=== PATIENT | female | born 1935 | race Caucasian/White ===

== ENCOUNTER → 2016-06-22 12:22 | Outpatient (CLI) | payer MEDICARE, BC ==
[2015-10-16 15:10] VITALS: BMI 30.4
[~2016-06-22 12:22] MED LIST: ALENDRONATE SOD70 MG PO; ANTIVERT12.5 MG PO; ASPIRIN EC81 M1 PO; BUMEX 1 MG TAB1 MG PO; CELEXA20 MG PO; CO Q-10200 MG PO; CYCLOBENZAPRINE10 MG PO; FISH OIL 1,0001 CA1 PO; IBUPROFEN600 MG PO; ICAPS AREDS1 TAB.SA PO; K-DUR20 MEQ PO; LOVASTATIN20 MG PO; MINOCIN100 MG PO; MOBIC7.5 MG PO; NORVASC5 MG PO; PLAVIX75 MG PO; PRILOSEC20 MG PO; VITAMIN B-121000 MCG PO; VITAMIN D31000 UNI2 PO
== END | disposition home or self-care (01) ==
LOC: D.US 12:22
DX: I65.21 Occlusion and stenosis of right carotid artery (principal)

== ENCOUNTER → 2017-01-09 08:34 | Outpatient (CLI) | payer MEDICARE, BC ==
[2015-10-16 15:10] VITALS: BMI 30.4
== END | disposition home or self-care (01) ==
LOC: D.CT 08:34
DX: I65.21 Occlusion and stenosis of right carotid artery (principal)

== ENCOUNTER → 2017-01-26 10:30 | Outpatient (CLI) | payer MEDICARE, BC ==
[2015-10-16 15:10] VITALS: BMI 30.4
== END | disposition home or self-care (01) ==
LOC: D.CT 10:30
DX: R91.1 Solitary pulmonary nodule (principal)

== ENCOUNTER → 2017-06-26 12:40 | Outpatient (CLI) | payer MEDICARE, BC ==
[2015-10-16 15:10] VITALS: BMI 30.4
== END | disposition home or self-care (01) ==
LOC: D.CT 12:40
DX: I65.23 Occlusion and stenosis of bilateral carotid arteries (principal)

== ENCOUNTER → 2018-01-26 11:05 | Outpatient (CLI) | payer MEDICARE, BC ==
[2015-10-16 15:10] VITALS: BMI 30.4
== END | disposition home or self-care (01) ==
LOC: D.US 11:05
DX: I65.23 Occlusion and stenosis of bilateral carotid arteries (principal); I72.9 Aneurysm of unspecified site

== ENCOUNTER → 2018-06-20 09:24 | Outpatient (CLI) | payer MEDICARE, BC ==
[2015-10-16 15:10] VITALS: BMI 30.4
--- NOTE | ~2018-06-20 | ST ---
PATIENT:JASSI COLLINS MEDICAL RECORD: [id number] SEX: F LOCATION:[facility] ORDER #: ADMISSION DATE: 06/20/18 AGE OF PATIENT: 82 REFERRING PHYSICIAN: INTERPRETING PHYSICIAN: JV WATSON MD DATE OF SERVICE: 06/20/2018 PROCEDURE: Nuclear stress test. INDICATION: Angina, shortness of breath, and hypertension. She was exercised on standard Lexiscan protocol with 32 mCi of sestamibi injected at peak stress. Rest images were done previously with 11 mCi. FINDINGS: Gated SPECT reveals preserved ejection fraction at 76% with good wall motion and thickening and brightening throughout all segments. SPECT imaging Cardiolite was used as myocardial fusion agent. There is homogeneous uptake throughout all segments at rest and stress with no evidence of inducible ischemia or previous infarction. OVERALL IMPRESSION: 1. This is a normal nuclear stress test with no evidence of inducible ischemia or previous infarction. 2. Gated SPECT reveals a preserved ejection fraction at 76%. In this patient with ongoing symptomatology, the current scan does not suggest the presence of hemodynamically significant coronary artery disease. Evaluate noncardiac etiology of chest pain. TRANSINT:[id number] Voice Confirmation ID: [id number] DOCUMENT ID: [id number] JV WATSON MD CC: [id number] DICTATION DATE: 06/20/18 1620 CREDIT REPORTER: 06/21/18 0442 DEP CLI 06/20/18 [facility] [address] [place] [address]
== END | disposition home or self-care (01) ==
LOC: D.HCCARDIO 09:24
PROVIDERS: ATTEND Internal Medicine Cardiovascular Disease
DX: I20.9 Angina pectoris, unspecified (principal)

== ENCOUNTER → 2018-08-28 08:40 | Outpatient (CLI) | payer MEDICARE, BC ==
[2015-10-16 15:10] VITALS: BMI 30.4
== END | disposition home or self-care (01) ==
LOC: D.US 08:40
PROVIDERS: ATTEND Internal Medicine Cardiovascular Disease
DX: I65.23 Occlusion and stenosis of bilateral carotid arteries (principal)

== ENCOUNTER → 2019-05-30 12:07 | Outpatient (CLI) | payer MEDICARE, BC ==
[~2019-05-30] VITALS: Ht 162.6 cm; Wt 72.7 kg
[~2019-05-30 12:07] MED LIST changes: +Bumex PO; +CARAFATE1 G PO; +LOPRESSOR25 MG PO; +PROTONIX40 MG PO; +VENTOLIN HFA [SP8 GM INH; +ZITHROMAX500 MG PO; +ZYLOPRIM100 MG PO
[2019-05-30 12:45] VITALS: BP 172/64; Ht 162.6 cm; Wt 72.7 kg
[2019-05-30 13:00] LABS: ANION GAP 14.2 mmol/L (8-16); CALCIUM 9.4 mg/dL (8.5-10.1); CARBON DIOXIDE 24.7 mmol/L (21.0-32.0); CREATININE - SERUM 1.6 mg/dL (0.6-1.3); POTASSIUM - SERUM 3.9 mmol/L (3.5-5.1)
[2019-05-30 13:17] LABS: BASOPHILS 0.4 % (0-2); EOSINOPHILS 4.1 % (0-7); HEMATOCRIT 22.3 % (36.0-48.0); IMMATURE GRANULOCYTES 0.2 % (0-5); LYMPHOCYTES 30.2 % (15-50); MCHC 29.6 g/dL (31.0-37.0); MCV 91.4 fL (80.0-100.0); MONOCYTES 8.2 % (2-11); NEUTROPHILS 56.9 % (40-80); PLATELET COUNT 232 10x3/uL (130-400); RBC 2.44 10x6/uL (4.00-5.40); RDW 16.1 % (11.5-14.5); WBC 5.4 10x3/uL (4.8-10.8)
[2019-05-30 13:18] LABS: HEMOGLOBIN 6.6 g/dL (12-16)
--- NOTE | 2019-05-30 13:45 | NUR ---
DR. ESTEVES CALLED AND SPOKE WITH PT'S SON ABOUT CANCELLING PROCEDURE AND ADMITTING PT FOR WORK UP OF ANEMIA AT THIS TIME.
--- NOTE | 2019-05-30 14:00 | NUR ---
CALLED AND SPOKE WITH PT'S SON AND UPDATED HIM ON PT'S STATUS, ROOM NUMBER, PLAN OF CARE, AND PHONE NUMBERS TO NURSES STATION AND TO PT'S NEW ROOM NUMBER.
--- NOTE | 2019-05-30 14:35 | NUR ---
PT TAKEN DOWN TO ROOM BY WHEELCHAIR. NO S/S OF DISTRESS NOTED. ALL BELONGINGS AND PAPERWORK IN HAND. AMBULATED TO BED FROM WHEELCHAIR. O2 AT 2LNC PLACED ON PT. CALL LIGHT WITHIN REACH AND PHONE AT BEDSIDE. HANDOFF REPORT GIVEN TO INES AZEVEDO AT BEDSIDE.
== END | disposition home or self-care (01) ==
LOC: D.CATH 12:07
PROVIDERS: ATTEND Internal Medicine Interventional Cardiology
DX: I34.0 Nonrheumatic mitral (valve) insufficiency (principal); R06.02 Shortness of breath; Z53.9 Procedure and treatment not carried out, unspecified reason

== ENCOUNTER 2019-05-30 14:07 | Inpatient (IN) | payer MEDICARE, BC ==
[~2019-05-30] VITALS: Ht 162.6 cm; Wt 50.5 kg
[~2019-05-30 14:07] MED LIST changes: -Bumex PO; -CARAFATE1 G PO; -PROTONIX40 MG PO; -ZITHROMAX500 MG PO
--- NOTE | 2019-05-30 14:40 | NUR ---
RECEIVED PT FROM HOSPICE REGISTERED NURSE RECOVERY. PT IS AAO AND UP WITH ASSIST. RR EVEN AND LABORED ONLY ON EXERTION. 2L 02 PLACED ON PT. NO S/S OF DISTRESS NOTED. QUICKSTART, HISTORY, AND MED REQ COMPLETE. VSS AND WNL. PT DENIES ANY NEEDS AT THIS TIME. PT ORIENTED TO ROOM. WILL CTM.
[2019-05-30 15:40] VITALS: BP 167/57; BMI 18.9
--- NOTE | 2019-05-30 19:17 | NUR ---
RECEIVE BEDSIDE REPORT. PATIENT IS ALERT AND ORIENTED, RESTING COMFORTABLY IN BED. RESPIRATIONS ARE EVEN AND UNLABORED. NO S/S OF DISTRESS. NO C/O PAIN. CALL LIGHT WITHIN REACH. WILL CPOC.
[2019-05-30 20:00] VITALS: BP 174/55
[2019-05-31] VITALS: BP 190/66
[2019-05-31 04:00] VITALS: BP 179/71
--- NOTE | 2019-05-31 07:15 | NUR ---
RESTING QUIETLY EYES CLOSED RESP UNLABORED SKIN W/D NAD NOTED
[2019-05-31 09:22] LABS: BASOPHILS 0.7 % (0-2); EOSINOPHILS 4.5 % (0-7); HEMATOCRIT 21.3 % (36.0-48.0); IMMATURE GRANULOCYTES 0.2 % (0-5); LYMPHOCYTES 31.6 % (15-50); MCH 26.3 pg (26.0-34.0); MCHC 28.6 g/dL (31.0-37.0); MCV 91.8 fL (80.0-100.0); MEAN PLATELET VOLUME 11.1 fL (7.4-10.4); MONOCYTES 8.9 % (2-11); NEUTROPHILS 54.1 % (40-80); PLATELET COUNT 203 10x3/uL (130-400); RBC 2.32 10x6/uL (4.00-5.40); RDW 16.2 % (11.5-14.5); WBC 4.5 10x3/uL (4.8-10.8)
[2019-05-31 09:36] LABS: HEMOGLOBIN 6.1 g/dL (12-16)
[2019-05-31 09:47] LABS: ANION GAP 11.5 mmol/L (8-16); CALCIUM 9.6 mg/dL (8.5-10.1); CARBON DIOXIDE 25.3 mmol/L (21.0-32.0); CREATININE - SERUM 1.3 mg/dL (0.6-1.3); POTASSIUM - SERUM 3.8 mmol/L (3.5-5.1)
[2019-05-31 10:08] VITALS: BP 195/83
[2019-05-31 10:18] LABS: ALBUMIN 3.1 g/dL (3.4-5.0); BILIRUBIN - DIRECT 0.18 mg/dL (0.00-0.30); BILIRUBIN - INDIRECT 0.72 mg/dL (0.00-1.00); BILIRUBIN - TOTAL 0.9 mg/dL (0.2-1.3); PROTEIN - SERUM 6.2 g/dL (6.4-8.2)
[2019-05-31 10:22] LABS: % SATURATION 5 % (15-55); IRON 18 ug/dl (35-150); TOTAL IRON BIND CAPACITY 331 ug/dl (260-445); UNSAT IRON BIND CAPACITY 313 ug/dl (150-375)
[2019-05-31 14:47] VITALS: Ht 162.6 cm; Wt 50.5 kg
[2019-05-31 15:21] LABS: HEMATOCRIT 21.1 % (36.0-48.0)
[2019-05-31 15:53] LABS: HEMOGLOBIN 6.3 g/dL (12-16)
[2019-05-31 17:07] LABS: BILIRUBIN NEGATIVE (NEGATIVE); GLUCOSE NEGATIVE (NEGATIVE); KETONE NEGATIVE (NEGATIVE); NITRITE NEGATIVE (NEGATIVE); SPECIFIC GRAVITY 1.015 (1.005-1.020); UROBILINOGEN NORMAL (NORMAL)
[2019-05-31 17:08] LABS: BACTERIA FEW /hpf (NEGATIVE); EPITHELIAL CELLS OCC /hpf (0-5); WHITE CELLS - URINE 0-5 /hpf (NEGATIVE)
[2019-05-31 20:00] VITALS: BP 187/69
--- NOTE | 2019-05-31 20:00 | NUR ---
REPORT RECIEVED AND INITIAL ROUNDS COMPLETED. PT HAS SIGNED CONSENT FOR BLOOD TRANSFUSION OF TWO UNITS OF PRBCS. CURRENTLY VERY RESTLESS AND SOB. ENCOURAGED TO KEEP O2 @ 2L/NC ON. IV TO LEFT A/C PATENT. SR PER TELEMETRY. ALERT/ORIENTED AND VERY PLEASANT. PT'S GRANDDAUGHTER WANTING AN UPDATE ON PATIENT CONDITION. PT GAVE PERMISSION TO PROVIDE INFORMATION TO ALLAN/GRANDDAUGHTER. SPOKE WITH ALLAN ON PHONE. GAVE UPDATE ON PATIENT STATUS.
--- NOTE | 2019-05-31 22:00 | NUR ---
WENT TO START 1ST UNIT OF PRBCS AND IV SITE INFILTRATED. ABLE TO GET A NEW SITE TO LEFT WRIST WITH 20G AND PRBCS #1 UP AND INFUSING BY 2214.
[2019-06-01 00:30] VITALS: BP 191/75
--- NOTE | 2019-06-01 01:00 | NUR ---
PT COMPLETED UNIT #1 OF PRBCS AT 0045. SHE HAS BEEN GETTING UP/DOWN TO BATHROOM AND EACH TIME SHE IS VERY SOB AND HAS TO BE REMINDED TO KEEP HER O2 @ 2L/NC IN PLACE. WILL ALLOW ACCLIMATION TIME BEFORE STARTING NEXT UNIT OF PRBCS. LUNG SOUNDS DO NOT INDICATE ANY CHANGE FROM BEFORE SHE RECIEVED UNIT TO AFTER UNIT GIVEN. WILL MONITOR.
--- NOTE | 2019-06-01 02:45 | NUR ---
2ND UNIT OF PRBCS UP AND INFUSING. PT STATES SHE JUST FEELS TIGHT/RESTRICTIVE IN HER BREATHING. RT TO ROOM AND PROVIDED PRN BREATHING TREATMENT TO PATIENT AND SHE SAYS SHE FEELS BETTER NOW. NO AUDIBLE CONGESTION HEARD IN LUNG [place], WHICH WAS A CONCERN WITH HER HAVING 2 UNITS OF PRBCS TONIGHT. WILL MONITOR. CURRENTLY PAITENT UP IN BEDSIDE RECLINER. ALSO NOTE THAT BP'S HAVE REMAINED ELEVATED, PT DENIES PAIN OR DISCOMFORT.
[2019-06-01 04:00] VITALS: BP 194/80
--- NOTE | 2019-06-01 05:02 | NUR ---
UNIT #2 OF PRBCS STILL INFUSING AND PT IS TOLERATING IT WELL. ASSISTED TO AMBULATE TO BATHROOM TO VOID. PT NOW BACK TO RECLINER.
[2019-06-01 06:46] LABS: BASOPHILS 0.5 % (0-2); HEMATOCRIT 28.8 % (36.0-48.0); HEMOGLOBIN 8.9 g/dL (12-16); IMMATURE GRANULOCYTES 0.4 % (0-5); LYMPHOCYTES 18.7 % (15-50); MCH 28.3 pg (26.0-34.0); MCHC 30.9 g/dL (31.0-37.0); MCV 91.7 fL (80.0-100.0); MONOCYTES 8.8 % (2-11); NEUTROPHILS 69.6 % (40-80); PLATELET COUNT 237 10x3/uL (130-400); RBC 3.14 10x6/uL (4.00-5.40); RDW 15.3 % (11.5-14.5); WBC 8.2 10x3/uL (4.8-10.8)
[2019-06-01 07:03] LABS: ANION GAP 12.3 mmol/L (8-16); CALCIUM 9.5 mg/dL (8.5-10.1); CREATININE - SERUM 1.5 mg/dL (0.6-1.3); POTASSIUM - SERUM 4.3 mmol/L (3.5-5.1)
[2019-06-01 08:18] VITALS: BP 181/70
--- NOTE | 2019-06-01 10:16 | NUR ---
PT AWAKE AND ORIENTED SITTING UP IN CHAIR WHEN I ENTERED ROOM. NO CMPLAINTS OR CONCERNS STATES SHE'S FEELING MUCH BETTER TODAY. SPOKE TO GRANDDAUGHTER, ANSWERED ALL QUESTIONS TO THE BEST OF MY ABILITY. CL IN REACH, SRX2.
[2019-06-01 11:37] VITALS: BP 147/51
--- NOTE | 2019-06-01 12:54 | NUR ---
ALERT AND ORIENTED, LYING IN BED WATCHING TELIVISION. NO COMPALINTS RO CONCERNS, STATES SHE'S BORED AND WISHES SHE COULD HAVE VISITORS BUT UNDERSTANDS WHY NOT. CL IN REACH, SRX2.
--- NOTE | 2019-06-01 18:51 | NUR ---
I have reviewed this patient and I concur with the Shift Assessment completed by the Licensed Practical Nurse today this shift.
--- NOTE | 2019-06-01 19:15 | NUR ---
RECEIVED REPORT, WILL ASSUME CARE OF PT, SLEEPING IN CHAIR, DENIES ANY NEEDS AT THIS TIME, CALL LIGHT IN REACH, WILL CONTINUE PLAN OF CARE
[2019-06-01 20:00] VITALS: BP 163/46
[2019-06-02] VITALS: BP 139/70
--- NOTE | 2019-06-02 00:48 | NUR ---
I have reviewed this patient and I concur with the Shift Assessment completed by the Licensed Practical Nurse today this shift.
[2019-06-02 04:00] VITALS: BP 184/60
[2019-06-02 05:15] LABS: BASOPHILS 0.5 % (0-2); HEMATOCRIT 27.7 % (36.0-48.0); HEMOGLOBIN 8.5 g/dL (12-16); IMMATURE GRANULOCYTES 0.2 % (0-5); LYMPHOCYTES 30.9 % (15-50); MCH 27.9 pg (26.0-34.0); MCHC 30.7 g/dL (31.0-37.0); MCV 90.8 fL (80.0-100.0); MEAN PLATELET VOLUME 10.9 fL (7.4-10.4); MONOCYTES 11.7 % (2-11); NEUTROPHILS 50.7 % (40-80); PLATELET COUNT 238 10x3/uL (130-400); RBC 3.05 10x6/uL (4.00-5.40); WBC 6.2 10x3/uL (4.8-10.8)
[2019-06-02 05:47] LABS: CALCIUM 9.5 mg/dL (8.5-10.1); CARBON DIOXIDE 26.7 mmol/L (21.0-32.0); CREATININE - SERUM 1.4 mg/dL (0.6-1.3); POTASSIUM - SERUM 3.7 mmol/L (3.5-5.1)
[2019-06-02] MEDS ORDERED: Bumex PO (09:12)
[2019-06-02] MEDS ORDERED: CARAFATE1 G PO (09:13)
[2019-06-02] MEDS ORDERED: PROTONIX40 MG PO (09:13)
[2019-06-02] MEDS ORDERED: ZITHROMAX500 MG PO (09:16)
[2019-06-02 09:25] VITALS: BP 189/60
--- NOTE | 2019-06-02 10:06 | MORECARE ---
CASE MANAGEMENT DISCHARGE SUMMARY PATIENT: JASSI COLLINS UNIT: [id number] ADM DATE: 05/30/19 AGE: 83 : 36 SEX: F ROOM/BED: D.2121 AUTHOR: ALFREDA TRONCOSO PHYSICIAN: REFERRING PHYSICIAN: DONTRELL ESTEVES MD DATE OF SERVICE: 06/02/19 Discharge Plan Patient Name: JASSI COLLINS [facility] [facility] 1935 Planned Disposition: Home Anticipated Discharge Date: 06/02/19 Discharge Date: Expected LOS: 3 Initial Reviewer: [email or web address] Initial Review Date: 05/30/2019 Generated: 06/02/19 11:05 am Patient Name: JASSI COLLINS Page [id number] at 1006 All edits/amendments must be made on the electronic document DICTATION DATE: 06/02/19 1005 SPIRITS MODEL: NEYDA 06/02/19 1005 RPT#: [id number] DC DATE: STATUS: ADM IN [facility] [address] [place] [address] END OF REPORT
--- NOTE | 2019-06-02 10:14 | MORECARE ---
CASE MANAGEMENT DISCHARGE SUMMARY PATIENT: JASSI COLLINS UNIT: [id number] ADM DATE: 05/30/19 AGE: 83 : 36 SEX: F ROOM/BED: D.6935 AUTHOR: KARYNA,DOC PHYSICIAN: REFERRING PHYSICIAN: DONTRELL ESTEVES MD DATE OF SERVICE: 06/02/19 Discharge Plan Patient Name: JASSI COLLINS Facility: [facility]:[place] : 1935 Planned Disposition: Home Anticipated Discharge Date: 06/02/19 Discharge Date: Expected LOS: 3 Initial Reviewer: [email or web address] Initial Review Date: 05/30/2019 Generated: 06/02/19 11:13 am Comments DCP- Discharge Planning Updated by [email or web address]: Leonor Watson on 06/02/19 9:[address] Patient Name: JASSI COLLINS Admission Status: Elective Accout number: [id number] Admission Date: 05-30-2019 : 1935 Admission Diagnosis: Attending: DONTRELL ESTEVES Current LOS: 3 Anticipated DC Date: 06-02-2019 Planned Disposition: Home Primary Insurance: MEDICARE A & B Discharge Planning Comments: CM met with patient to discuss discharge planning/needs, she is alone in the room. States she lives alone. States she works at the [employer]. States she plans to return home and feels this is a safe discharge. States she uses a cane at home and her walker at work, otherwise is completely independent with all ADL's and IADL's. States her son lives in [place] and will come and drive her home. She denies need for DME or home health. Home today, no needs identified. Check Viewer: Leonor Watson DCPIA - Discharge Planning Initial Assessment Updated by [email or web address]: Leonor Watson on 06/02/19 10:06 am * Is the patient Alert and Oriented? Yes * How many steps to enter\exit or inside your home? Ramp/0 * PCP Dr. Priyank Mahoney in [place] * Preadmission Environment Home Alone * ADLs Partial Dependent * Partial ADLs (Assistance needed) Ambulation * Equipment Cane Other Walker * Other Equipment Lift recliner * List name and contact numbers for known caregivers / representatives who currently or will assist patient after discharge: Yaya Collins - son - C [phone] * Verbal permission to speak to the caregivers and representatives has been obtained from the patient. Yes * Community resources currently utilized None * Additional services required to return to the preadmission environment? No * Can the patient safely return to the preadmission environment? Yes * Has this patient been hospitalized within the prior 30 days at any hospital? No Coverage Notice Reviewer: [email or web address] Srikanth Watson Notice Issued Date-Time: 06/02/2019 9:30 Notice Type: IM Discharge Notice Notice Delivered To: Patient Relationship to Patient: Self Yoke Setter Name: Delivery Method: HAND - Hand Delivered Tessie Days: Prior Verbal Notification: Recipient Understood Notice: Yes Recipient Signature: Yes Med Rec Note Co-signed by Attending: Coverage Notice Comment: IMM explained, signed, given, copy placed in MR Last DP export: 06/02/19 9:06 a Patient Name: JASSI COLLINS Page [phone] at 1014 All edits/amendments must be made on the electronic document DICTATION DATE: 06/02/19 1013 HAND ASSEMBLER: NEYDA 06/02/19 1013 RPT#: [id number] DC DATE: STATUS: ADM IN [facility] [address] [place] [address] END OF REPORT
--- NOTE | 2019-06-02 12:01 | NUR ---
PT ESCORTED OUT VIA WHEELCHAIR TO ER ENTRANCE, SON DRIVING POV.
--- NOTE | 2019-06-02 14:35 | MORECARE ---
CASE MANAGEMENT DISCHARGE SUMMARY PATIENT: JASSI COLLINS UNIT: [id number] ADM DATE: 05/30/19 AGE: 83 : 36 SEX: F ROOM/BED: D.2121 AUTHOR: KARYNA,DOC PHYSICIAN: REFERRING PHYSICIAN: DONTRELL ESTEVES MD DATE OF SERVICE: 06/02/19 Discharge Plan Patient Name: JASSI COLLINS Facility: [facility]:[place] : 1935 Planned Disposition: Home Anticipated Discharge Date: 06/02/19 Discharge Date: 06/02/2019 Expected LOS: 3 Initial Reviewer: [email or web address] Initial Review Date: 05/30/2019 Generated: 06/02/19 3:34 pm Comments DCP- Discharge Planning Updated by [email or web address]: Leonor Watson on 06/02/19 9:[address] Patient Name: JASSI COLLINS Admission Status: Elective Accout number: [id number] Admission Date: 05-30-2019 : 1935 Admission Diagnosis: Attending: DONTRLEL ESTEVES Current LOS: 3 Anticipated DC Date: 06-02-2019 Planned Disposition: Home Primary Insurance: MEDICARE A & B Discharge Planning Comments: CM met with patient to discuss discharge planning/needs, she is alone in the room. States she lives alone. States she works at the [employer]. States she plans to return home and feels this is a safe discharge. States she uses a cane at home and her walker at work, otherwise is completely independent with all ADL's and IADL's. States her son lives in [place] and will come and drive her home. She denies need for DME or home health. Home today, no needs identified. Contact Printer Dry Film: Leonor Watson DCPIA - Discharge Planning Initial Assessment Updated by [id number]: Leonor Watson on 06/02/19 10:06 am * Is the patient Alert and Oriented? Yes * How many steps to enter\exit or inside your home? Ramp/0 * PCP Dr. Priyank Mahoney in [place] * Preadmission Environment Home Alone * ADLs Partial Dependent * Partial ADLs (Assistance needed) Ambulation * Equipment Cane Other Walker * Other Equipment Lift recliner * List name and contact numbers for known caregivers / representatives who currently or will assist patient after discharge: Yaya Collins - son - C [phone] * Verbal permission to speak to the caregivers and representatives has been obtained from the patient. Yes * Community resources currently utilized None * Additional services required to return to the preadmission environment? No * Can the patient safely return to the preadmission environment? Yes * Has this patient been hospitalized within the prior 30 days at any hospital? No Coverage Notice Reviewer: [id number] Srikanth Watson Notice Issued Date-Time: 06/02/2019 9:30 Notice Type: IM Discharge Notice Notice Delivered To: Patient Relationship to Patient: Self Inspector Salvage Name: Delivery Method: HAND - Hand Delivered Tessie Days: Prior Verbal Notification: Recipient Understood Notice: Yes Recipient Signature: Yes Med Rec Note Co-signed by Attending: Coverage Notice Comment: IMM explained, signed, given, copy placed in MR Last DP export: 06/02/19 9:14 a Patient Name: JASSI COLLINS Page 65077 at 1435 All edits/amendments must be made on the electronic document DICTATION DATE: 06/02/19 1434 WHIZZER: NEYDA 06/02/19 1434 RPT#: [id number] DC DATE:06/02/19 STATUS: DIS IN [facility] [address] [place] [address] END OF REPORT
== END 2019-06-02 12:04 | disposition home or self-care (01) | DRG 377 ==
LOC: D.M2 14:07
PROVIDERS: Internal Medicine Cardiovascular Disease; Internal Medicine Nephrology; ADMIT Internal Medicine Interventional Cardiology; ATTEND Internal Medicine Interventional Cardiology
DX: K29.71 Gastritis, unspecified, with bleeding (principal); J18.9 Pneumonia, unspecified organism; D62 Acute posthemorrhagic anemia; N17.9 Acute kidney failure, unspecified; K92.1 Melena; D50.9 Iron deficiency anemia, unspecified; R04.0 Epistaxis; I11.0 Hypertensive heart disease with heart failure; I50.9 Heart failure, unspecified; Z86.73 Personal history of transient ischemic attack (TIA), and cerebral infarction without residual deficits

== ENCOUNTER → 2019-08-20 12:49 | Outpatient (CLI) | payer MEDICARE, BC ==
[2019-05-31 14:47] VITALS: BMI 18.9
[~2019-08-20 12:49] MED LIST changes: +Bumex PO; +CARAFATE1 G PO; +PROTONIX40 MG PO; +ZITHROMAX500 MG PO
== END | disposition home or self-care (01) ==
LOC: D.US 12:49
PROVIDERS: ATTEND Internal Medicine Cardiovascular Disease
DX: I65.23 Occlusion and stenosis of bilateral carotid arteries (principal)

== ENCOUNTER → 2020-08-03 08:18 | Outpatient (CLI) | payer MEDICARE, BC ==
[2019-05-31 14:47] VITALS: BMI 18.9
[2020-08-03 09:53] LABS: ALBUMIN 3.9 g/dL (3.4-5.0); BILIRUBIN - DIRECT 0.22 mg/dL (0.00-0.30); BILIRUBIN - INDIRECT 0.78 mg/dL (0.00-1.00); PROTEIN - SERUM 7.2 g/dL (6.4-8.2)
[2020-08-04 11:13] LABS: HEPATITIS C ANTIBODY <0.1 S/CO RAT (0.0-0.9)
== END | disposition home or self-care (01) ==
LOC: D.US 08:00
PROVIDERS: ATTEND Internal Medicine Gastroenterology
DX: R10.13 Epigastric pain (principal)